=== PATIENT | male | born 1975 | race African-American/Black ===

== ENCOUNTER 2018-12-05 05:53 | Emergency (ER) | payer MEDICAID ==
[~2018-12-05] VITALS: Ht 188 cm; Wt 107.0 kg
[2018-12-05] MEDS ORDERED: KETOROLAC 60MG/2ML VIAL IM ONE (08:15)
[2018-12-05 08:58] VITALS: BP 133/84
== END 2018-12-05 09:01 | disposition home or self-care (01) ==
LOC: ER 07:38
DX: S80.212A Abrasion, left knee, initial encounter (principal); S80.211A Abrasion, right knee, initial encounter; E11.9 Type 2 diabetes mellitus without complications; F17.200 Nicotine dependence, unspecified, uncomplicated; F12.10 Cannabis abuse, uncomplicated; X58.XXXA Exposure to other specified factors, initial encounter; Y93.89 Activity, other specified; Y92.89 Other specified places as the place of occurrence of the external cause; Y99.8 Other external cause status
CPT/HCPCS: 96372; 99283; J1885